=== PATIENT | male | born 1935 | race Caucasian/White ===

== ENCOUNTER 2021-01-24 20:53 | Inpatient (IN) | payer MEDICARE ==
[~2021-01-24] VITALS: Ht 170.2 cm; Wt 89.1 kg
[2021-01-24] MEDS ORDERED: OMEPRAZOLE20 M1 PO (22:32)
[2021-01-24] MEDS ORDERED: CRESTOR10 MG PO (22:34)
[2021-01-24] MEDS ORDERED: ISOSORBIDE MONO20 MG PO (22:47)
[2021-01-24] MEDS ORDERED: FERROUS SULFAT325 M2 PO (22:47)
[2021-01-24] MEDS ORDERED: ADULT LOW DOSE81 MG PO (22:48)
[2021-01-24] MEDS ORDERED: LOPRESSOR100 MG PO (22:49)
[2021-01-24] MEDS ORDERED: LOPRESSOR 25 MG25 MG PO (22:49)
[2021-01-24] MEDS ORDERED: COLCHICINE 0.60.6 MG PO (22:50)
[2021-01-24] MEDS ORDERED: NOVOLOG100 UNIT/1 SQ (22:51)
[2021-01-24 23:56] LABS: HEMOGLOBIN 13.1 gm/dl (14.0-17.5); RED BLOOD COUNT 4.15 M/UL (4.20-5.50)
[2021-01-25 00:07] LABS: BUN/CREATININE RATIO 19 (0-10)
[2021-01-26 03:28] LABS: HEMOGLOBIN 11.7 gm/dl (14.0-17.5); WHITE BLOOD COUNT 9.6 K/UL (4.5-11.0)
[2021-01-26 03:33] LABS: RED BLOOD COUNT 3.73 M/UL (4.20-5.50)
--- NOTE | 2021-01-27 12:38 | NUR ---
AT 1200 PATIENT CALLED OUT TO GO TO THE RESTROOM, STAFF ASSISTED HIM TO THE RESTROOM AFTER 10-15 MINUTES PATIENT WAS FINSIHED AND REQUESTED ASSISTANCE BACK TO THE BED, MYSELF AND 2 OTHER STAFF MEMBERS ASSISTED THE PATIENT TO THE DOOR OF THE BATHROOM THE PATIENT THEN WAS LOWERED TO THE GROUND HE WAS HAVING MOMENTS OF APNEA, I CALLED FOR THE NURSE THEN TO CALL A CODE BLUE THE PATIENT WAS NO LONGER BREATHING ONCE IN THE FLOOR. STAFF THEN ASSISTED TO CARRY THE PATIENT BACK TO THE BED AND BEGAN CPR.
[2021-01-27 13:34] LABS: HEMOGLOBIN 11.6 gm/dl (14.0-17.5); RED BLOOD COUNT 3.66 M/UL (4.20-5.50); WHITE BLOOD COUNT 10.2 K/UL (4.5-11.0)
[2021-01-27 14:08] LABS: BUN/CREATININE RATIO 33 (0-10)
[2021-01-28 09:12] LABS: HEMOGLOBIN 11.3 gm/dl (14.0-17.5); RED BLOOD COUNT 3.64 M/UL (4.20-5.50)
[2021-01-28 09:13] LABS: WHITE BLOOD COUNT 6.1 K/UL (4.5-11.0)
[2021-01-29 05:01] LABS: HEMOGLOBIN 12.8 gm/dl (14.0-17.5); RED BLOOD COUNT 4.12 M/UL (4.20-5.50); WHITE BLOOD COUNT 10.2 K/UL (4.5-11.0)
[2021-01-29 05:24] LABS: BUN/CREATININE RATIO 27 (0-10)
== END 2021-01-29 10:52 | disposition expired | DRG 208 ==
LOC: M/S 22:09 → CCU 22:09 → EDBD 22:09 → M/S 01-25 → CCU 01-27 12:40
PROVIDERS: Internal Medicine; Internal Medicine Pulmonary Disease; ADMIT Internal Medicine Infectious Disease
PROC: 3E02340 Introduction of Influenza Vaccine into Muscle, Percutaneous Approach (ICD-10-PCS; 2021-01-25)
PROC: B24BZZ4 Ultrasonography of Heart with Aorta, Transesophageal (ICD-10-PCS; 2021-01-26)
PROC: 5A12012 Performance of Cardiac Output, Single, Manual (ICD-10-PCS; principal; 2021-01-27)
PROC: 5A1945Z Respiratory Ventilation, 24-96 Consecutive Hours (ICD-10-PCS; 2021-01-27)
PROC: 0BH17EZ Insertion of Endotracheal Airway into Trachea, Via Natural or Artificial Opening (ICD-10-PCS; 2021-01-27)
PROC: 3E033XZ Introduction of Vasopressor into Peripheral Vein, Percutaneous Approach (ICD-10-PCS; 2021-01-27)
DX: J96.01 Acute respiratory failure with hypoxia (principal); J18.9 Pneumonia, unspecified organism; J44.0 Chronic obstructive pulmonary disease with (acute) lower respiratory infection; I25.810 Atherosclerosis of coronary artery bypass graft(s) without angina pectoris; G93.40 Encephalopathy, unspecified; Z66 Do not resuscitate; R40.2432 Glasgow coma scale score 3-8, at arrival to emergency department; Z20.822 Contact with and (suspected) exposure to COVID-19; Z51.5 Encounter for palliative care; D86.0 Sarcoidosis of lung; I46.8 Cardiac arrest due to other underlying condition; E11.9 Type 2 diabetes mellitus without complications; I10 Essential (primary) hypertension; I48.91 Unspecified atrial fibrillation; M10.9 Gout, unspecified; F03.90 Unspecified dementia, unspecified severity, without behavioral disturbance, psychotic disturbance, mood disturbance, and anxiety; H91.90 Unspecified hearing loss, unspecified ear; J84.10 Pulmonary fibrosis, unspecified; D69.6 Thrombocytopenia, unspecified; K21.9 Gastro-esophageal reflux disease without esophagitis; E78.5 Hyperlipidemia, unspecified; Z83.3 Family history of diabetes mellitus; Z87.891 Personal history of nicotine dependence; Z86.16 Personal history of COVID-19; Z79.4 Long term (current) use of insulin; Z95.1 Presence of aortocoronary bypass graft; Z79.01 Long term (current) use of anticoagulants; Z79.82 Long term (current) use of aspirin
CPT/HCPCS: ECHO; 31500; 36415; 36600; 71045; 80048; 80053; 80061; 82803; 82962; 83036; 83605; 83735; 83880; 85025; 85379; 86140; 87040; 87070; 87077; 87186; 87205; 87278; 92950; 93005; 93306; 94002; 94003; 94640; 94660; 94664; 94760; 97162; J0456; J0696; J1160; J1335; J1650; J1940; J2060; J2250; J2270; J3486; J7030; U0002